=== PATIENT | male | born 1995 ===

== ENCOUNTER 2017-05-11 09:58 | Day surgery (SDC) | payer BC ==
[2017-05-11 11:37] LABS: #Basophils 0.1 thou/uL (0.0-0.2); #Eosinphils 0.1 thou/uL (0.0-0.7); #Lymphocytes 1.3 thou/uL (1.20-3.40); #Monocytes 0.6 thou/uL (0.11-0.59); #Neutrophils 5.7 thou/uL (1.40-6.50); %Basophils 0.7 % (0.0-1.0); %Eosinophils 1.6 % (0.0-10.0); %Lymphocytes 17.2 % (21.0-51.0); %Monocytes 7.3 % (0.0-10.0); %Neutrophils 73.1 % (42.0-75.0); Hemoglobin 15.4 g/dL (14.0-18.0); Mean Corpuscular HGB CONC 32.4 g/dL (32.0-36.0); Mean Corpuscular Hemoglobin 31.8 pg (27.0-31.0); Mean Platelet Volume 7.8 fL (7.4-10.4); Platelet Count 292 thou/uL (130-400); RBC Distribution Width 11.1 % (11.5-14.5); Red Blood Cell (RBC) Count 4.86 mill/uL (4.70-6.10); White Blood Cell (WBC) Count 7.8 thou/uL (4.8-10.8)
[2017-05-11 11:56] LABS: ALT (SGPT) 15 U/L (8-55); AST (SGOT) 12 U/L (5-34); Albumin 4.5 g/dL (3.5-5.0); Alkaline Phosphatase 64 U/L (40-150); Anion Gap 11 mmol/L (10-20); BUN (Urea Nitrogen) 10 mg/dL (8.9-20.6); Bilirubin, Total 1.5 mg/dL (0.2-1.2); Calc. Creatinine Clearance 0 mL/min (70-130); Calcium 10.2 mg/dL (7.8-10.44); Carbon Dioxide 28 mmol/L (22-29); Chloride 101 mmol/L (98-107); Estimated GFR-MDRD Greater than 90; Globulin 3.1 g/dL (2.4-3.5); Glucose 88 mg/dL (70-105); Lipase 25 U/L (8-78); Potassium 4.3 mmol/L (3.5-5.1); Protein, Total 7.6 g/dL (6.0-8.3); Sodium 136 mmol/L (136-145)
--- NOTE | 2017-05-11 12:54 | CT ---
CT OF ABDOMEN AND PELVIS: Date: 05-11-17 Comparison: None. History: Right lower quadrant pain, assess for appendicitis. Technique: Serial axial CT imaging at 5 mm intervals from lung bases through pubic symphysis with IV and oral contrast. Coronal reformatted imaging obtained. FINDINGS: The imaged lung bases are unremarkable. No free intraperitoneal air. The liver, spleen, pancreas, adrenal glands and kidneys appear unremarkable. There is no evidence for obstruction of the large or small bowel. The appendix is located inferior to the cecum and demonstrates wall thickening and is dilated measuring up to 1 cm in transverse dimensi on. The appendix is fluid filled and may contain a punctate appendicolith on coronal image 67. Findin gs are consistent with acute appendicitis. No associated abscess. Vascular structures of abdomen/pelvis appear patent. No lymphadenopathy or acute osseous abnormality. IMPRESSION: Evidence of acute appendicitis. Dr. Arrington made aware at 12:30 p.m. POS: [facility]
[2017-05-11] MEDS ORDERED: Fentanyl 250 MCG/5 ML VIAL ONE (13:26)
--- NOTE | 2017-05-11 13:54 | HP ---
DATE OF ADMISSION: 05/11/2017 HISTORY OF PRESENT ILLNESS: Mr. Reilly is a 21-year-old young man, who presented to emergency departm ent with a 24-hour history of what started as a periumbilical abdominal pain. Pain was described as crampy and intermittent, initially rated at 5/10 and intensified to 9/10. Pain is now in right lower quadrant. The patient admits to some nausea, but no emesis. He denies any diarrhea. He denies any fevers or c hills. PAST MEDICAL HISTORY: The patient denies any previous medical problems. PAST SURGICAL HISTORY: All unremarkable except for wisdom tooth extraction. 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 He denies any cigarette smoking, ethanol, or illicit drug abuse. FAMILY HISTORY: Notable for canal paternal grandmother with diabetes mellitus. He denies any family history of essential hypertension, heart disease, or cancer. CURRENT MEDICATIONS: None. ALLERGIES: Patient denies any known drug allergies. REVIEW OF SYSTEMS: A 10-point review of systems is essentially unremarkable except for stated in pas t medical history and chief complaint. PHYSICAL EXAMINATION: GENERAL: This reveals a 21-year-old normally developed man, who is otherwise coherent and interactiv e and appears stated age. The patient is alert and oriented x3, appears to be in no acute distress a t the time of my evaluation. VITAL SIGNS: Include blood pressure 108/66, pulse 88, respiratory rate is 12, oxygen saturation is 1 00% on room air. HEENT EXAMINATION: Reveals normocephalic and atraumatic. Pupils are equal, round, and reactive to l ight and accommodation. Extraocular muscles are intact bilaterally. He has no scleral icterus prese nt. HEART: Reveals regular rate and rhythm, no murmurs or gallops auscultated. LUNGS: Clear to auscultation bilaterally. Breathing regular and unlabored. ABDOMEN: Soft with right lower quadrant tenderness at McBurney's. He has a negative Rovsing sign. Liver and spleen are nonpalpable below costal margin. EXTREMITIES: There is 2+ radial and pedal pulses bilaterally. No ankle edema is present. NEUROLOGICAL EXAMINATION: Reveals no focal deficits present. PERTINENT LABORATORY FINDINGS: Today includes a CBC with 7800 white blood cells, hemoglobin 15.4, he matocrit is 47.6, platelet count is 292,000. Metabolic profile: Sodium 136, potassium is 4.3, chlor karen is 101, bicarbonate 28, BUN 10, creatinine 0.82, glucose is 88. Total bilirubin is 1.5. I have personally reviewed the CT scan of the abdomen and pelvis, which is remarkable for dilated appendix w ith mild periappendiceal fat stranding. No significant free fluid noted. IMPRESSION: Acute appendicitis. PLAN: Laparoscopic appendectomy. I have advised the patient of the above findings and plan. I have also advised him of the risks and benefits of the proposed surgery. Risks include, but not limited to bleeding, infection, injury to bowel or surrounding structures. This information given to the pat ient in the presence of his nurse. He indicates understanding of information given. The patient has granted consent for this admission and surgical intervention.
[2017-05-11] MEDS ORDERED: Bupivacaine/Epinephrine 0.25% 30 ML VIAL ONE (14:04)
[2017-05-11] MEDS ORDERED: Famotidine/PF 20 mg/2ml Vial ONE (14:14)
[2017-05-11] MEDS ORDERED: Ondansetron HCl/PF 4 MG/2 ML Vial ONE ×3 (14:14→14:54)
[2017-05-11] MEDS ORDERED: Midazolam HCl 2 mg/2 ml Vial ONE (14:20)
[2017-05-11] MEDS ORDERED: Dexamethasone 20 MG/5 ML VIAL ONE (14:54)
[2017-05-11] MEDS ORDERED: Ketorolac Tromethamine 30 MG/ML VIAL ONE (14:54)
[2017-05-11] MEDS ORDERED: Glycopyrrolate 0.2 MG/ML 5 ML SYRINGE ONE (14:54)
[2017-05-11] MEDS ORDERED: Lidocaine 1% PF 5 ML VIAL ONE (14:54)
[2017-05-11] MEDS ORDERED: PROPOFOL 200 MG/20 ML VIAL ONE (14:54)
[2017-05-11] MEDS ORDERED: Succinylcholine Chloride 20 MG/ML 10 ml SYRINGE FS ONE (14:54)
[2017-05-11] MEDS ORDERED: Piperacillin/Tazobactam 3.375 GM in Sodium Chloride 0.9% 100 ML IVPB SCH (15:00)
[2017-05-11] MEDS ORDERED: Iopamidol 370 76% 50 ML VIAL FS ONE (16:54)
[2017-05-11] MEDS ORDERED: ISOVUE-370 76%-LOCM 1 ML ONE (16:54)
[2017-05-11] MEDS ORDERED: Promethazine HCl 25 MG/ML VIAL ONE (17:06)
[2017-05-11] MEDS ORDERED: Morphine 4 MG/ML VIAL ONE (17:06)
--- NOTE | 2017-05-11 17:47 | OP ---
DATE OF OPERATION: 05/11/2017 PREOPERATIVE DIAGNOSIS: Acute appendicitis. POSTOPERATIVE DIAGNOSIS: Acute appendicitis. PROCEDURE PERFORMED: Laparoscopic appendectomy. SURGEON: Yung Burt D.O. ANESTHESIA: General endotracheal. ESTIMATED BLOOD LOSS: 10 mL. FLUIDS GIVEN: 1200 mL crystalloids. URINARY OUTPUT: 250 mL. SPONGE AND INSTRUMENT COUNT: Certified as correct x2. COMPLICATIONS: None apparent. INDICATIONS FOR PROCEDURE: This is a 21-year-old young man presented to emergency department with a 24-hour history of abdominal pain. Clinical and radiographic examination was consistent with acute a ppendicitis for which patient was brought to the operating room for appendectomy. Findings are consistent with a dilated retrocecal appendix, no evidence of perforation. DESCRIPTION OF PROCEDURE: Informed consent obtained from the patient, brought to operating room and placed in supine position. Following general anesthesia, a Mason catheter was inserted and placed be dside drain. Abdomen sterilely prepped and draped in usual fashion. Skin below the umbilicus was in filtrated with 0.25% Marcaine with epinephrine. A small curvilinear infraumbilical incision was made using 11 scalpel. Umbilical stalk grasped with Marry and elevated. Veress needle was inserted thr ough the incision and placed in the peritoneal cavity through which the abdomen was insufflated with 3 liters of CO2 gas. Intraabdominal pressure was noted at 2 mmHg. Following abdominal insufflation, Veress needle was removed. A 5 mm trocar was inserted and through this incision, I placed in the pe ritoneal cavity using a Visiport under laparoscopy. Laparoscopy confirmed proper placement of the po rt, no injuries to underlying structures. Under direct laparoscopy, a 5 mm suprapubic and a 12 mm le ft lower quadrant ports were placed after the overlying skin were infiltrated with 0.25% Marcaine wit h epinephrine and appropriate incision was made. The patient was then placed in the Trendelenburg position, rotated to his left. I then used a [employer] grasper to explore the right lower quadrant. Finding, the retrocecal appendix obscured by adheren t loops of distal ileum. Using an EndoShears, fiberoptic attachments of the distal ileum were taken down to mobilize the distal ileum medially to gain proper exposure of the retrocecal appendix. I the n introduced a Endo Gee forceps through the suprapubic port site grasping the appendix which was elevated. Using [place] dissector to create a rent through the mesoappendix at the base. Using an Endo TESS with a blue load, appendix was divided at appendicocecal junction. A white load of the Endo -TESS was then used to divide the mesoappendix at the base. The appendix was then delivered out of th e abdominal cavity using an EndoCatch. Operative site was inspected for good hemostasis. Finding, n o other pathology, laparoscopy was terminated. Fascia of the left lower quadrant port was closed usi ng 0 Vicryl suture and Endo close device under laparoscopy. Abdomen was desufflated. All ports and instruments removed and accounted for. Skin incisions are then closed using 4-0 Monocryl suture in s ubcuticular fashion. Dermabond was applied over the incisions. The patient tolerated the operation without any apparent complication and was returned to recovery room in a satisfactory condition.
== END 2017-05-11 18:46 | disposition home or self-care (01) ==
LOC: ERS 09:58 → SDC/OP 13:48
PROVIDERS: ATTEND Surgery
PROC: 0DTJ4ZZ Resection of Appendix, Percutaneous Endoscopic Approach (ICD-10-PCS; principal; 2017-05-11)
DX: K35.80 Unspecified acute appendicitis (principal)
CPT/HCPCS: 36415; 74177; 80053; 83690; 85025; 88304; 96360; 96361; 96374; 96375; J1100; J1885; J2001; J2250; J2270; J2405; J2543; J2550; J2704; J3010; J7050; S0028